=== PATIENT | male | born 1960 | race African-American/Black ===

== ENCOUNTER 2018-01-07 11:53 | Emergency (ER) | payer OTHER ==
[~2018-01-07] VITALS: Ht 172.7 cm; Wt 77.1 kg
[2018-01-07 12:01] VITALS: BP 152/72
[2018-01-07] MEDS ORDERED: Aspirin Baby 81mg ORAL ONE (12:15)
[2018-01-07 12:23] LABS: ANION GAP 6 mmol/L (5-15); BASOPHILS % (AUTO) 1.2 % (0.0-2.0); BLOOD UREA NITROGEN 12 mg/dL (7-18); CALCIUM 9.4 MG/DL (8.5-10.1); CARBON DIOXIDE 32 MMOL/L (21-32); CHLORIDE 99 MMOL/L (98-107); CREATININE 1.2 MG/DL (0.55-1.30); EOSINOPHILS % (AUTO) 0.9 % (0.0-3.0); HEMATOCRIT 43.2 % (42.0-52.0); HEMOGLOBIN 14.3 G/DL (14.2-18.0); LYMPHOCYTES % (AUTO) 37.1 % (20.0-45.0); MEAN CORPUSCULAR VOLUME 83 FL (80-99); MONOCYTES % (AUTO) 10.8 % (1.0-10.0); NEUTROPHILS % (AUTO) 50.1 % (45.0-75.0); PLATELET COUNT 274 K/UL (150-450); POTASSIUM 2.9 MMOL/L (3.5-5.1); RED BLOOD COUNT 5.22 M/UL (4.70-6.10); RED CELL DISTRIBUTION WIDTH 12.6 % (11.6-14.8); SODIUM 137 MMOL/L (136-145); WHITE BLOOD COUNT 3.9 K/UL (4.8-10.8)
[2018-01-07 12:34] LABS: ALANINE AMINOTRANSFERASE 21 U/L (12-78); ALBUMIN 4.2 G/DL (3.4-5.0); ALKALINE PHOSPHATASE 90 U/L (46-116); ASPARTATE AMINO TRANSFERASE 25 U/L (15-37); BILIRUBIN,TOTAL 0.7 MG/DL (0.2-1.0); CKMB 1.7 NG/ML (0.0-3.6); CREATINE KINASE 349 U/L (26-308)
[2018-01-07] MEDS ORDERED: Lidocaine 2% Visc 15ml soln ORAL ONE (12:45)
[2018-01-07 12:59] LABS: APPEARANCE,URINE CLEAR; BILIRUBIN, URINE NEGATIVE (NEGATIVE); COLOR,URINE PALE YELLOW; GLUCOSE, URINE (UA) NEGATIVE (NEGATIVE); KETONES,URINE NEGATIVE (NEGATIVE); LEUKOCYTE ESTERASE ,URINE NEGATIVE (NEGATIVE); NITRITE,URINE NEGATIVE (NEGATIVE); PH,URINE 8 (4.5-8.0); PROTEIN,URINE NEGATIVE (NEGATIVE); UROBILINOGEN,URINE NORMAL MG/DL (0.0-1.0)
--- NOTE | 2018-01-07 13:32 | Emergency Room Report ---
History of Present Illness General Chief Complaint: Chest Pain Source: Patient Present Illness HPI This patient states that he has had chest pain over the past 3 days. He states that the pain has been constant but over the past few hours the pain is progressed to become more severe. He describes it as his epigastrium and lower chest in the midline. He also had some pain in his right arm. He does have a history of hypertension and GERD. He recently underwent changes to his hypertension medications. He has hydrochlorothiazide and hydralazine added to his regimen. He is also placed on Protonix. He denies cough or congestion. He denies fever or chills. He denies nausea or vomiting. He has no other complaints. Allergies: Coded Allergies: No Known Allergies (Unverified , 01/07/18) Patient History Past Medical History: see triage record, HTN, GERD, other - HLP Social History: Denies: smoking, alcohol use, drug use Reviewed Nursing Documentation: PMH: Agreed; PSxH: Agreed Nursing Documentation-PMH Past Medical History: No History, Except For Hx Hypertension: Yes - BPH Review of Systems All Other Systems: negative except mentioned in HPI Physical Exam Vital Signs Date Time Temp Pulse Resp B/P (MAP) Pulse Ox O2 Delivery O2 Flow Rate FiO2 01/07/18 11:55 97.9 85 19 161/88 100 Room Air 97.9 Sp02 EP Interpretation: reviewed, normal General Appearance: no apparent distress, alert, GCS 15, non-toxic Head: normocephalic, atraumatic Eyes: bilateral eye normal inspection, bilateral eye PERRL ENT: hearing grossly normal, normal pharynx, no angioedema, normal voice Neck: full range of motion, supple/symm/no masses Respiratory: chest non-tender, lungs clear, normal breath sounds, no respiratory distress, no retraction, no accessory muscle use, speaking full sentences Cardiovascular #1: regular rate, rhythm, no edema Gastrointestinal: normal bowel sounds, non tender, soft, non-distended, no guarding, no rebound, tenderness - mild ttp in the epigastrium. Rectal: deferred Musculoskeletal: back normal, gait/station normal, normal range of motion, non- tender Neurologic: alert, oriented x3, responsive, motor strength/tone normal, sensory intact, speech normal Psychiatric: judgement/insight normal, memory normal, mood/affect normal, no suicidal/homicidal ideation Skin: normal color, no rash, warm/dry, well hydrated Medical Decision Making Diagnostic Impression: Primary Impression: Chest pain ER Course This patient has nonspecific chest pain. Given the length of symptoms, this workup is very reassuring with negative cardiac enzymes, normal EKG, and normal chest x-ray. The patient is low risk and his symptoms are atypical for acute coronary syndrome. I have very low suspicion for PE, aortic dissection or pneumothorax based on history/physical, laboratory and radiologic workup. The patient has a history more consistent with GERD/gastritis and esophagitis. He was given Pepcid IV and oral Mylanta and viscous lidocaine. The patient is on Protonix. The patient was given close return precautions and followup instructions. Laboratory Tests Test 01/07/18 12:00 01/07/18 12:28 White Blood Count 3.9 K/UL (4.8-10.8) L Red Blood Count 5.22 M/UL (4.70-6.10) Hemoglobin 14.3 G/DL (14.2-18.0) Hematocrit 43.2 % (42.0-52.0) Mean Corpuscular Volume 83 FL (80-99) Mean Corpuscular Hemoglobin 27.4 PG (27.0-31.0) Mean Corpuscular Hemoglobin Concent 33.2 G/DL (32.0-36.0) Red Cell Distribution Width 12.6 % (11.6-14.8) Platelet Count 274 K/UL (150-450) Mean Platelet Volume 8.0 FL (6.5-10.1) Neutrophils (%) (Auto) 50.1 % (45.0-75.0) Lymphocytes (%) (Auto) 37.1 % (20.0-45.0) Monocytes (%) (Auto) 10.8 % (1.0-10.0) H Eosinophils (%) (Auto) 0.9 % (0.0-3.0) Basophils (%) (Auto) 1.2 % (0.0-2.0) Sodium Level 137 MMOL/L (136-145) Potassium Level 2.9 MMOL/L (3.5-5.1) L Chloride Level 99 MMOL/L (98-107) Carbon Dioxide Level 32 MMOL/L (21-32) Anion Gap 6 mmol/L (5-15) Blood Urea Nitrogen 12 mg/dL (7-18) Creatinine 1.2 MG/DL (0.55-1.30) Estimate Glomerular Filtration Rate > 60 mL/min (>60) Glucose Level 124 MG/DL (74-106) H Calcium Level 9.4 MG/DL (8.5-10.1) Total Bilirubin 0.7 MG/DL (0.2-1.0) Aspartate Amino Transferase (AST) 25 U/L (15-37) Alanine Aminotransferase (ALT) 21 U/L (12-78) Alkaline Phosphatase 90 U/L (46-116) Total Creatine Kinase 349 U/L (26-308) H Creatine Kinase MB 1.7 NG/ML (0.0-3.6) Creatine Kinase MB Relative Index 0.4 Troponin I 0.020 ng/mL (0.000-0.056) Total Protein 8.2 G/DL (6.4-8.2) Albumin 4.2 G/DL (3.4-5.0) Globulin 4.0 g/dL Albumin/Globulin Ratio 1.0 (1.0-2.7) Urine Color Pale yellow Urine Appearance Clear Urine pH 8 (4.5-8.0) Urine Specific [place] 1.015 (1.005-1.035) Urine Protein Negative (NEGATIVE) Urine Glucose (UA) Negative (NEGATIVE) Urine Ketones Negative (NEGATIVE) Urine Occult Blood Negative (NEGATIVE) Urine Nitrite Negative (NEGATIVE) Urine Bilirubin Negative (NEGATIVE) Urine Urobilinogen Normal MG/DL (0.0-1.0) Urine Leukocyte Esterase Negative (NEGATIVE) Urine Opiates Screen Negative (NEGATIVE) Urine Barbiturates Screen Negative (NEGATIVE) Phencyclidine (PCP) Screen Negative (NEGATIVE) Urine Amphetamines Screen Negative (NEGATIVE) Urine Benzodiazepines Screen Negative (NEGATIVE) Urine Cocaine Screen Negative (NEGATIVE) Urine Marijuana (THC) Screen Negative (NEGATIVE) EKG Diagnostic Results Rate: normal Rhythm: NSR ST Segments: no acute changes Rhythm Strip Diag. Results EP Interpretation: yes Rate: 80's Rhythm: NSR, no PVC's, no ectopy Chest X-Ray Diagnostic Results Chest X-Ray Diagnostic Results : Chest X-Ray Ordered: Yes # of Views/Limited/Complete: 1 View Indication: Chest Pain EP Interpretation: No Interpretation: no consolidation, no effusion, no acute cardiopulmonary disease Impression: No acute disease Electronically Signed by: Janneth Last Vital Signs Date Time Temp Pulse Resp B/P (MAP) Pulse Ox O2 Delivery O2 Flow Rate FiO2 01/07/18 12:01 97.9 87 18 152/72 100 Room Air 97.9 Status: improved Disposition: HOME, SELF-CARE Condition: Improved Referrals: [facility],REFERRING (PCP) Patient Instructions: Nonspecific Chest Pain ROSY LUND D.O. Jan 07, 2018 13:32
[2018-01-07] MEDS ORDERED: Ketorolac 30mg Inj IV ONE (14:00)
--- NOTE | 2018-01-07 14:27 | Diagnostic Imaging Report ---
Indication: Chest pain Technique: One view of the chest Comparison: none Findings: Lungs and pleural spaces are clear. Heart size is normal Impression: No acute process
[2018-01-07] MEDS ORDERED: PEPCID AC20 M2 PO (14:53)
[2018-01-07] MEDS ORDERED: MAALOX ADVANCE1 EACH PO (14:57)
[2018-01-07 15:01] VITALS: BP 134/64
[2018-01-07 15:30] VITALS: BP 134/64
--- NOTE | 2018-01-12 15:24 | Cardiology Report ---
APPROVED REPORT EKG Measurement Heart [id number] Normal sinus rhythm Normal ECG
== END 2018-01-07 15:34 | disposition home or self-care (01) ==
LOC: EMR 12:51
DX: R07.89 Other chest pain (principal); I10 Essential (primary) hypertension; K21.9 Gastro-esophageal reflux disease without esophagitis; E78.5 Hyperlipidemia, unspecified
CPT/HCPCS: 36415; 71045; 80053; 80307; 81003; 82550; 82553; 84484; 85025; 93005; 96374; 96375; 99283; J1885; S0028

== ENCOUNTER 2020-04-05 13:00 | Outpatient (CLI) | payer MEDICAID ==
[~2020-04-05] VITALS: Ht 172.7 cm; Wt 89.4 kg
[~2020-04-05 13:00] MED LIST: MAALOX ADVANCE1 EACH PO; PEPCID AC20 M2 PO
--- NOTE | 2020-04-05 18:28 | Consultation ---
DATE OF CONSULTATION: 04/05/2020 CHIEF COMPLAINT: Abdominal pain. PAST MEDICAL HISTORY: 1. Hypertension. 2. Anemia. 3. Kidney stone. 4. BPH. PAST SURGICAL HISTORY: None. MEDICATIONS: Please see medication reconciliation list. FAMILY HISTORY: No family history of GI malignancies. SOCIAL HISTORY: The patient denies any tobacco, alcohol, or drug abuse. ALLERGIES: No known allergies. REVIEW OF SYSTEMS: Positive for abdominal pain, bloating, minimum constipation. Last endoscopy July 2019, which according to him was normal. The patient also complained of some dysphagia. PHYSICAL EXAMINATION: VITAL SIGNS: Temperature 97.8, blood pressure 122/69, pulse 75. HEENT: Normocephalic and atraumatic. Sclerae anicteric. NECK: Supple. No evidence of obvious lymphadenopathy. CARDIOVASCULAR: Regular rate and rhythm. Plus S1, S2. LUNGS: Clear to auscultation bilaterally. ABDOMEN: Positive bowel sounds. Soft and nontender. No rebound. No guarding. No peritoneal sign. EXTREMITIES: No cyanosis. No clubbing. ASSESSMENT AND PLAN: This is a 60-year-old male with abdominal bloating, dysphagia symptoms, left lower extremity edema. The patient apparently seen by the optical laboratory mechanic, getting evaluation for the lower extremity edema including CT of the chest. Given the symptoms of dysphagia in a 60-year-old male, we will recommend endoscopy. We will try to get authorization for that. Meanwhile, we are going to give the patient Align one tablet p.o. daily until we get him to the endoscopy. Faizan Scales M.D. DR: Ayad JOB#: [id number] CC:
[2020-04-06 10:25] VITALS: BP 128/69
== END 2020-04-05 15:00 | disposition home or self-care (01) ==
LOC: PAN 13:00
DX: R10.9 Unspecified abdominal pain (principal); I10 Essential (primary) hypertension; R14.0 Abdominal distension (gaseous); K59.00 Constipation, unspecified; R13.10 Dysphagia, unspecified; R60.0 Localized edema; Z87.442 Personal history of urinary calculi
CPT/HCPCS: G0463

== ENCOUNTER 2020-05-17 14:22 | Outpatient (CLI) | payer MEDICAID ==
[2020-05-17 14:31] VITALS: BP 131/77
--- NOTE | 2020-05-17 14:51 | General Progress Note ---
Subjective ROS Limited/Unobtainable: Yes Allergies: Coded Allergies: No Known Allergies (Unverified , 01/07/18) Objective Last 24 Hour Vital Signs Date Time Temp Pulse Resp B/P (MAP) Pulse Ox O2 Delivery O2 Flow Rate FiO2 05/17/20 14:31 97.6 80 16 131/77 97 General Appearance: alert EENT: normal ENT inspection Neck: supple Cardiovascular: normal rate Respiratory/Chest: lungs clear Abdomen: normal bowel sounds, non tender, soft Extremities: non-tender Assessment/Plan Assessment/Plan: GERD gastritis bloating mild constipation recent colonoscopy per patient s/p EGD add ppi add miralax VSL #3 RTC prn Faizan Scales MD May 17, 2020 14:51
== END 2020-05-17 16:22 | disposition home or self-care (01) ==
LOC: PAN 14:22
DX: K21.9 Gastro-esophageal reflux disease without esophagitis (principal); K29.70 Gastritis, unspecified, without bleeding; R14.0 Abdominal distension (gaseous); K59.00 Constipation, unspecified
CPT/HCPCS: 99212